=== PATIENT | male | born 1930 | race Caucasian/White ===

== ENCOUNTER 2016-09-24 08:16 | Emergency (ER) | payer MEDICARE, BC ==
[2016-09-24 08:43] VITALS: BP 146/81
--- NOTE | 2016-09-24 09:15 | CR ---
Knee Min 4V Rt HISTORY: pt fell and landed on the rt knee. He has pain whe FINDINGS: No acute fracture or dislocation is identified. Bony architecture is preserved. Right total knee ar throplasty is demonstrated with patellar resurfacing. No loosening other complication can be seen. N o joint effusion is identified. There is atherosclerotic calcification in the distal SFA and poplite al arteries. Soft tissues are unremarkable. IMPRESSION: Right total knee arthroplasty. No complication is identified. No fracture or other acute right abnor mality is identified.
--- NOTE | 2016-09-24 09:34 | EDM.PDOC ---
[id number] Complaint: LEG PAIN Time Seen by Provider: 09/24/16 08:40 Source of Information: Reports: Patient History Limitations: Reports: No Limitations - History of Present Illness INITIAL COMMENTS - FREE TEXT/NARRATIVE: pt fell and landed on his knees. He is now have alot of pain in the rt knee. He is on coumadind and is concerned about the bruising. Onset: Sudden Duration: Hour(s): Location: Reports: Lower Extremity, Right Associated Symptoms: Reports: Other (pt is having significanr rt knee pain. ) Bilateral Leg Pain Score (Numeric/FACES): 10 - Related Data Allergies Allergy/AdvReac Type Severity Reaction Status Date / Time penicillin Allergy Severe Blisters Verified 09/24/16 09:11 Home Meds: Home Meds Glimepiride 4 mg PO DAILY 01/18/15 [History] Hydrochlorothiazide 12.5 mg PO DAILY 01/18/15 [History] Omeprazole 20 mg PO DAILY 01/18/15 [History] Tamsulosin [Flomax] 0.4 mg PO BEDTIME 01/18/15 [History] Clobetasol [Temovate 0.05% Crm] 1 appful TOP BID 01/23/16 [History] Multivitamin with Minerals [Multiple Vitamin] 1 tab PO DAILY 01/23/16 [History] [place]-3 Fatty Acids [Fish Oil] 1 cap PO BID 01/23/16 [History] Warfarin [Coumadin] 4 mg PO DAILY 01/23/16 [History] diphenhydrAMINE HCl [Benadryl] 1 cap PO Q6H PRN 01/23/16 [History] Simvastatin [Zocor] 20 mg PO BEDTIME 01/25/16 [History] metFORMIN [Glucophage] 500 mg PO BIDAC 09/24/16 [History] Past Medical History HEENT History: Reports: Hard of Hearing Cardiovascular History: Reports: Afib, High Cholesterol Genitourinary History: Reports: Chronic Renal Insuffiency Musculoskeletal History: Reports: Fracture Neurological History: Reports: Other (See Below) Other Neuro History: subdural hematoma Other Dermatologic History: bleeding from back of head - Past Surgical History Other Musculoskeletal Surgeries/Procedures:: left hip fracture with surgical repair Social & Family History - Tobacco Use Smoking Status *Q: Never Smoker Second Hand Smoke Exposure: No - Caffeine Use Caffeine Use: Reports: Coffee, Tea - Recreational Drug Use Recreational Drug Use: No Review of Systems - Review of Systems Review Of Systems: See Below Constitutional: Reports: No Symptoms Eyes: Reports: No Symptoms Ears: Reports: No Symptoms Nose: Reports: No Symptoms Mouth/Throat: Reports: No Symptoms Respiratory: Reports: No Symptoms Cardiovascular: Reports: No Symptoms GI/Abdominal: Reports: No Symptoms Musculoskeletal: Reports: Other (pain in the rt knee. ) Skin: Reports: No Symptoms Psychiatric: Reports: No Symptoms Trauma Exam - Physical Exam Exam: See Below Text/Narrative:: Pt arrived with pain in the rt knee. He hit it when he fell 2 days ago and now he is having pain when he walks. Exam Limited By: No Limitations General Appearance: Reports: Alert, Mild Distress Head: Reports: Atraumatic Eyes: Bilateral Eye: EOMI, Normal Inspection, PERRL Ears: Reports: Normal External Exam Nose: Reports: Normal Inspection Extremities: Other ( rt knes is not swollen or bruised. The pain commes mainly when he is walking. ) Neurologic: Reports: Alert, Oriented x 3 Course - Vital Signs Last Recorded V/S: Last Vital Signs Temp 36.5 C 09/24/16 08:39 Pulse 80 09/24/16 08:39 Resp 14 09/24/16 08:39 BP 146/81 H 09/24/16 08:39 Pulse Ox 98 09/24/16 08:39 - Orders/Labs/Meds Labs: Laboratory Tests 09/24/16 Range/Units 09:26 PT 17.2 H (9.5-12.0) sec INR 1.60 H (0.80-1.20) - Re-Assessments/Exams Free Text/Narrative Re-Assessment/Exam: 09/24/16 09:34 Xrays reveal normal components. He has no fractures in the knee area. He does not have hip pain. Because of the fall his INR will be checked. 09/24/16 10:05 pt had a INR done and it was 1.6. Will fax to the coumadin clinic. 09/27/16 21:08 Departure - Departure Time of Disposition: 10:06 Disposition: Home, Self-Care 01 Condition: fair Clinical Impression: Contusion of right knee, Total knee replacement status - Discharge Information Instructions: Contusion, [id number], Total Knee Replacement, [id number] Referrals: Jason Mccartney PA-C [Primary Care Provider] - Forms: ED Department Discharge Care Plan Goals: use a walker at home, cool pack to the knee, tylenol 650 q6h prn for pain. If pt has severe pain may use norco 5/325 1/2 tab q6h prn for pain.
== END 2016-09-24 10:34 | disposition home or self-care (01) ==
LOC: JP.ED 08:16
DX: S80.01XA Contusion of right knee, initial encounter (principal); I48.91 Unspecified atrial fibrillation; E78.00 Pure hypercholesterolemia, unspecified; N18.9 Chronic kidney disease, unspecified; Z88.0 Allergy status to penicillin; Z79.01 Long term (current) use of anticoagulants; Z79.84 Long term (current) use of oral hypoglycemic drugs; Z79.899 Other long term (current) drug therapy; Z96.651 Presence of right artificial knee joint; Z98.890 Other specified postprocedural states; W19.XXXA Unspecified fall, initial encounter
CPT/HCPCS: 36415; 73564-26-RT; 73564-RT; 85610; 99283; 99284

== ENCOUNTER 2016-11-29 03:50 | Inpatient (IN) | payer MEDICARE, BC ==
[2016-11-29] MEDS ORDERED: Acetaminophen/HYDROcodone 325-5 MG Tab PO ONE (04:51)
--- NOTE | 2016-11-29 06:44 | EDM.PDOC ---
ED HPI GENERAL MEDICAL PROBLEM - General Chief Complaint: Back Pain or Injury Stated Complaint: [facility] Time Seen by Provider: 11/29/16 04:34 Source of Information: Reports: Patient History Limitations: Reports: Other (mild confusion) - History of Present Illness INITIAL COMMENTS - FREE TEXT/NARRATIVE: History of present illness: [86-year-old male presented by ambulance complaining of low back pain. He had an appointment today with Dr. Mixon but early this morning he had to get up to urinate and was not able to get out of his bed because of his back pain. He recalls being in the clinic 2 days ago and having some x-rays but he did not recall what was x-rayed and seem to have some difficulty knowing why he was there. We were able to access the clinic side and noted that he had thoracic and lumbar films taken at that visit and those films demonstrated an L5 compression fracture.] Review of systems: As per history of present illness and below otherwise all systems reviewed and negative. Past medical history: As per history of present illness and as reviewed below otherwise noncontributory. Surgical history: As per history of present illness and as reviewed below otherwise noncontributory. Social history: No reported history of drug or alcohol abuse. Family history: As per history of present illness and as reviewed below otherwise noncontributory. Physical exam: Gen.: HEENT: Atraumatic, normocephalic, Lungs: Few crackles in the bases. Otherwise clear Heart: Irregular rate and rhythm. I suspect these in A. fib and that's why he's on warfarin. Abdomen: Obese ,Soft, nondistended, nontender. Negative for masses or hepatosplenomegaly. Negative for costovertebral tenderness. Pelvis: Stable nontender. Genitourinary: Deferred. Rectal: Deferred. Back: On palpation of his lower back he does have tenderness at the location of the L5 compression fracture that was seen 2 days ago on x-ray. Extremities: Atraumatic, negative for cords or calf pain. Neurovascular unremarkable. Neuro: Awake, alert, oriented but seems to be demonstrating some memory difficulties with respect to his visit 2 days ago. The nurses is also noted some subtle difficulties with his memory.. Cranial nerves II through XII unremarkable. Cerebellum unremarkable. Motor and sensory unremarkable throughout. Exam nonfocal. Diagnostics: [CBC complete medical PANEL UA and INR were obtained of interest is his INR which is 1.0 suggesting he's not been taking his warfarin.] Therapeutics: [] Impression: [L5 compression fracture] Plan: [Given that he lives alone and is incapacitated by this pain we have elected to admit him to the hospital for observation. Dr. Dc is coming in to see him.] Definitive disposition and diagnosis as appropriate pending reevaluation and review of above. Back Pain Score (Numeric/FACES): 8 - Related Data Allergies Allergy/AdvReac Type Severity Reaction Status Date / Time penicillin Allergy Severe Blisters Verified 11/29/16 04:18 Home Meds: Home Meds Glimepiride 4 mg PO DAILY 01/18/15 [History] Hydrochlorothiazide 12.5 mg PO DAILY 01/18/15 [History] Omeprazole 20 mg PO DAILY 01/18/15 [History] Tamsulosin [Flomax] 0.4 mg PO BEDTIME 01/18/15 [History] Clobetasol [Temovate 0.05% Crm] 1 appful TOP BID 01/23/16 [History] Multivitamin with Minerals [Multiple Vitamin] 1 tab PO DAILY 01/23/16 [History] [place]-3 Fatty Acids [Fish Oil] 1 cap PO BID 01/23/16 [History] diphenhydrAMINE HCl [Benadryl] 1 cap PO Q6H PRN 01/23/16 [History] Simvastatin [Zocor] 20 mg PO BEDTIME 01/25/16 [History] metFORMIN [Glucophage] 500 mg PO TID 09/24/16 [History] Hydrocodone/Acetaminophen [Hydrocodon-Acetaminophen 5-325] 1 each PO ASDIRECTED PRN 11/29/16 [History] Polyethylene Glycol 3350 [Miralax] 17 g PO DAILY 11/29/16 [History] Warfarin [Coumadin] 1.5 tab PO ASDIRECTED 11/29/16 [History] Warfarin [Coumadin] 6 mg PO ASDIRECTED 11/29/16 [History] Past Medical History HEENT History: Reports: Cataract, Hard of Hearing, Impaired Vision Cardiovascular History: Reports: Afib, High Cholesterol, Hypertension Gastrointestinal History: Reports: GERD Genitourinary History: Reports: Chronic Renal Insuffiency, Urinary Incontinence Musculoskeletal History: Reports: Arthritis, Fracture Neurological History: Reports: Head Trauma Other Neuro History: subdural hematoma Endocrine/Metabolic History: Reports: Diabetes, Type II Hematologic History: Reports: Anticoagulation Therapy Dermatologic History: Reports: Psoriasis Other Dermatologic History: bleeding from back of head - Past Surgical History HEENT Surgical History: Reports: Cataract Surgery, Tonsillectomy GI Surgical History: Reports: Colonoscopy Musculoskeletal Surgical History: Reports: Hip Replacement, Knee Replacement Other Musculoskeletal Surgeries/Procedures:: left hip fracture with surgical repair Social & Family History - Tobacco Use Smoking Status *Q: Never Smoker Second Hand Smoke Exposure: No - Caffeine Use Caffeine Use: Reports: Coffee - Recreational Drug Use Recreational Drug Use: No ED ROS GENERAL - Review of Systems Review Of Systems: ROS reveals no pertinent complaints other than HPI. ED EXAM,LOWER BACK PAIN/INJURY - Physical Exam Exam: See Below Course - Vital Signs Last Recorded V/S: Last Vital Signs Temp 37.1 C 11/29/16 04:03 Pulse 66 11/29/16 06:21 Resp 16 11/29/16 06:21 BP 170/99 H 11/29/16 06:21 Pulse Ox 96 11/29/16 06:21 - Orders/Labs/Meds Labs: Laboratory Tests 11/29/16 11/29/16 11/29/16 Range/Units 04:51 04:51 04:52 WBC 8.9 (4.5-11.0) K/uL RBC 4.52 (4.30-5.90) M/uL Hgb 12.1 (12.0-15.0) g/dL Hct 38.2 L (40.0-54.0) % MCV 85 (80-98) fL MCH 27 (27-31) pg MCHC 32 (32-36) % Plt Count 195 (150-400) K/uL Neut % (Auto) 77 H (36-66) % Lymph % (Auto) 12 L (24-44) % [place] % (Auto) 9 H (2-6) % Eos % (Auto) 2 (2-4) % Baso % (Auto) 0 (0-1) % PT 10.7 (9.5-12.0) sec INR 1.00 (0.80-1.20) Sodium 135 L (140-148) mmol/L Potassium 3.5 L (3.6-5.2) mmol/L Chloride 101 (100-108) mmol/L Carbon Dioxide 26 (21-32) mmol/L Anion Gap 11.5 (5.0-14.0) mmol/L BUN 16 (7-18) mg/dL Creatinine 1.1 (0.8-1.3) mg/dL Est Cr Clr Drug Dosing 55.01 mL/min Estimated GFR (MDRD) > 60 (>60) Glucose 168 H (74-106) mg/dL Calcium 8.7 (8.5-10.1) mg/dL Total Bilirubin 0.9 (0.2-1.0) mg/dL AST 11 L (15-37) U/L ALT 12 (12-78) U/L Alkaline Phosphatase 77 (46-116) U/L Total Protein 7.5 (6.4-8.2) g/dL Albumin 3.0 L (3.4-5.0) g/dL Globulin 4.5 H (2.3-3.5) g/dL Albumin/Globulin Ratio 0.7 L (1.2-2.2) Urine Color Urine Appearance Urine pH (4.5-8.0) Ur Specific [place] (1.008-1.030) Urine Protein (NEGATIVE) mg/dL Urine Glucose (UA) (NEGATIVE) mg/dL Urine Ketones (NEGATIVE) mg/dL Urine Occult Blood (NEGATIVE) Urine Nitrite (NEGAITVE) Urine Bilirubin (NEGATIVE) Urine Urobilinogen (NORMAL) mg/dL Ur Leukocyte Esterase (NEGATIVE) Urine RBC (0-5) Urine WBC (0-5) Ur Epithelial Cells Amorphous Sediment Urine Bacteria Urine Mucus 11/29/16 Range/Units 04:53 WBC (4.5-11.0) K/uL RBC (4.30-5.90) M/uL Hgb (12.0-15.0) g/dL Hct (40.0-54.0) % MCV (80-98) fL MCH (27-31) pg MCHC (32-36) % Plt Count (150-400) K/uL Neut % (Auto) (36-66) % Lymph % (Auto) (24-44) % [place] % (Auto) (2-6) % Eos % (Auto) (2-4) % Baso % (Auto) (0-1) % PT (9.5-12.0) sec INR (0.80-1.20) Sodium (140-148) mmol/L Potassium (3.6-5.2) mmol/L Chloride (100-108) mmol/L Carbon Dioxide (21-32) mmol/L Anion Gap (5.0-14.0) mmol/L BUN (7-18) mg/dL Creatinine (0.8-1.3) mg/dL Est Cr Clr Drug Dosing mL/min Estimated GFR (MDRD) (>60) Glucose (74-106) mg/dL Calcium (8.5-10.1) mg/dL Total Bilirubin (0.2-1.0) mg/dL AST (15-37) U/L ALT (12-78) U/L Alkaline Phosphatase (46-116) U/L Total Protein (6.4-8.2) g/dL Albumin (3.4-5.0) g/dL Globulin (2.3-3.5) g/dL Albumin/Globulin Ratio (1.2-2.2) Urine Color Yellow Urine Appearance Clear Urine pH 7.0 (4.5-8.0) Ur Specific [place] 1.010 (1.008-1.030) Urine Protein Negative (NEGATIVE) mg/dL Urine Glucose (UA) 50 H (NEGATIVE) mg/dL Urine Ketones Negative (NEGATIVE) mg/dL Urine Occult Blood Negative (NEGATIVE) Urine Nitrite Negative (NEGAITVE) Urine Bilirubin Negative (NEGATIVE) Urine Urobilinogen Normal (NORMAL) mg/dL Ur Leukocyte Esterase Negative (NEGATIVE) Urine RBC 0-5 (0-5) Urine WBC 0-5 (0-5) Ur Epithelial Cells Rare Amorphous Sediment Few Urine Bacteria Not seen Urine Mucus Few Meds: Medications Discontinued Medications Generic Name Dose Route Start Last Admin Trade Name Freq PRN Reason Stop Dose Admin Hydrocodone Bitart/Acetaminophen 1 tab 11/29/16 04:51 11/29/16 04:57 [place] 325-5 Mg PO 11/29/16 04:52 1 tab ONETIME ONE Administration Departure - Departure Time of Disposition: 06:44 Disposition: Refer to Observation Condition: Fair Clinical Impression: Compression fracture of L5 lumbar vertebra Qualifiers: Encounter type: initial encounter Fracture type: closed Qualified Code(s): S32.050A - Wedge compression fracture of fifth lumbar vertebra, initial encounter for closed fracture - Discharge Information Forms: ED Department Discharge
[2016-11-29] MEDS ORDERED: Acetaminophen 325 MG Tab PO PRN (08:06)
[2016-11-29] MEDS: Polyethylene Glycol 3350 Powder 17 GM Packet PO SCH (11:26)
[2016-11-29] MEDS: OMEPRAZOLE 20 MG PO SCH (11:27)
[2016-11-29] MEDS: Glimepiride 2 MG Tab PO SCH (11:27)
[2016-11-29] MEDS: Hydrochlorothiazide 12.5 MG Cap PO SCH (11:28)
[2016-11-29] MEDS: Acetaminophen/HYDROcodone 325-5 MG Tab PO PRN ×2 (13:45→21:51)
[2016-11-29] MEDS: Warfarin 5 MG Tab PO SCH (13:46)
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
[2016-11-29] MEDS: Tamsulosin 0.4 MG Cap.ER*POM PO SCH (21:49)
[2016-11-29] MEDS: SIMVASTATIN 40 MG PO SCH (21:49)
[2016-11-30] MEDS: Acetaminophen/HYDROcodone 325-5 MG Tab PO PRN ×3 (03:59→23:40)
[2016-11-30] MEDS: OMEPRAZOLE 20 MG PO SCH (08:08)
[2016-11-30] MEDS: Glimepiride 2 MG Tab PO SCH (08:15)
[2016-11-30] MEDS: Hydrochlorothiazide 12.5 MG Cap PO SCH (08:15)
[2016-11-30] MEDS: Polyethylene Glycol 3350 Powder 17 GM Packet PO SCH (09:28)
--- NOTE | 2016-11-30 09:49 | PCM.PN ---
- General Info Date of Service: 11/30/16 Functional Status: Reports: Pain Controlled, Tolerating Diet, Ambulating - Review of Systems General: Reports: Weakness Musculoskeletal: Reports: Back Pain Systems Review Comment:: No acute events overnight. Back pain is improved compared to yesterday. He is able to get out of bed on his own and ambulate short distances with a walker. No significant pain while sitting still or standing up but some pain going from lying to sitting and sitting to standing. Physical therapy thinks that he's had his recent baseline. Vital signs have been stable. - Patient Data Vitals - most recent: Last Vital Signs Temp 37.1 C 11/30/16 08:00 Pulse 87 11/30/16 08:00 Resp 18 11/30/16 08:00 BP 164/81 H 11/30/16 00:00 Pulse Ox 97 11/30/16 00:00 Weight - most recent: 99.3 kg I&O - last 24 hours: Intake & Output 11/29/16 11/30/16 11/30/16 22:59 06:59 14:59 Intake Total 800 120 Output Total 650 Balance 800 -530 Lab Results last 24 hrs: Laboratory Results - last 24 hr 11/30/16 Range/Units 07:50 PT 11.0 (9.5-12.0) sec INR 1.03 (0.80-1.20) Med Orders - Current: Current Medications Acetaminophen (Tylenol) 650 mg PO Q4H PRN PRN Reason: Pain (Mild 1-3)/fever Hydrocodone Bitart/Acetaminophen ([place] 325-5 Mg) 1 tab PO Q6H PRN PRN Reason: Pain Last Admin: 11/30/16 03:59 Dose: 1 tab Glimepiride (Amaryl) 4 mg PO DAILY@0800 [facility] Last Admin: 11/30/16 08:15 Dose: 4 mg Hydrochlorothiazide (Hydrochlorothiazide) 12.5 mg PO DAILY [facility] Last Admin: 11/30/16 08:15 Dose: 12.5 mg Omeprazole [ Omeprazole] 20 Mg)* Pom* 20 mg PO DAILY@0730 [facility] Last Admin: 11/30/16 08:08 Dose: 20 mg Metformin 1000mg * (Pom*) 0.5 each PO TIDMEALS [facility] Last Admin: 11/30/16 08:08 Dose: 0.5 each Simvastatin 40mg*Pom (*) 20 mg PO BEDTIME [facility] Last Admin: 11/29/16 21:49 Dose: 20 mg Polyethylene Glycol (Miralax) 17 gm PO DAILY [facility] Last Admin: 11/30/16 09:28 Dose: 17 gm Tamsulosin HCl (Flomax) 0.4 mg PO BEDTIME [facility] Last Admin: 11/29/16 21:49 Dose: 0.4 mg Warfarin Sodium (Coumadin) 5 mg PO DAILY@1300 [facility] Last Admin: 11/29/16 13:46 Dose: 5 mg Discontinued Medications Hydrocodone Bitart/Acetaminophen ([place] 325-5 Mg) 1 tab PO ONETIME ONE Stop: 11/29/16 04:52 Last Admin: 11/29/16 04:57 Dose: 1 tab - Exam Quality Assessment: No: supplemental oxygen General: alert, oriented, cooperative, no acute distress Neck: supple Lungs: Normal Respiratory Effort Cardiovascular: Regular Rate, Regular Rhythm GI/Abdominal Exam: Soft, No Distention Extremities: No Pedal Edema. No: Increased Warmth Skin: warm, dry Psy/Mental Status: alert, normal affect - Problem List Review Problem List Initiated/Reviewed/Updated: Yes - My Orders Last 24 Hours: My Active Orders 12/01/16 05:00 INR,PT,PROTHROMBIN TIME [COAG] Timed POTASSIUM,K [CHEM] Timed - Plan Plan:: Assessment and plan - Acute lower back pain with generalized weakness - known compression fracture at L5. Clinically doing better today and able to get into and out of bed on his own. He has been working with physical therapy and may be at his baseline at this time. -Continue pain control -Physical therapy -Consider discharge home versus [facility] depending on progress in 24 hours Type 2 diabetes mellitus - on oral medications only. Sugars have been acceptably controlled. Essential hypertension - blood pressure control acceptable. Constipation - no bowel movement in a couple of days and is feeling uncomfortable. -Bowel stimulation Maintenance issues - - DVT prophylaxis - ROLAND stockings - GI prophylaxis - PPI - Nutrition - diabetic diet Disposition - anticipate discharge to home with home health care versus may be [facility] discharge in the next 1-2 days Jama Peoples M.D.
[2016-11-30] MEDS: Warfarin 5 MG Tab PO SCH (12:10)
[2016-11-30] MEDS: Tamsulosin 0.4 MG Cap.ER*POM PO SCH (20:44)
[2016-11-30] MEDS: SIMVASTATIN 40 MG PO SCH (20:45)
[2016-12-01] MEDS: Acetaminophen/HYDROcodone 325-5 MG Tab PO PRN ×4 (05:36→22:10)
[2016-12-01] MEDS: OMEPRAZOLE 20 MG PO SCH (08:01)
[2016-12-01] MEDS: Hydrochlorothiazide 12.5 MG Cap PO SCH (08:02)
[2016-12-01] MEDS: Polyethylene Glycol 3350 Powder 17 GM Packet PO SCH (08:03)
[2016-12-01] MEDS: Glimepiride 2 MG Tab PO SCH (08:03)
--- NOTE | 2016-12-01 12:16 | PCM.PN ---
- General Info Date of Service: 12/01/16 Functional Status: Reports: Tolerating Diet, Ambulating. Denies: Pain Controlled - Review of Systems Musculoskeletal: Reports: Back Pain Systems Review Comment:: No acute events overnight but this morning he reports moderately severe lower back pain. It is the same location where it has been in the midline of the lower back. Pain is more severe with any sort of movement though he is fairly comfortable when he is sitting completely still. Pain pills to help with his discomfort for a while. Has not had any fevers. No complaints of shortness of breath or abdominal pain. He did have a bowel movement yesterday. - Patient Data Vitals - most recent: Last Vital Signs Temp 37.2 C 12/01/16 10:57 Pulse 74 12/01/16 10:56 Resp 20 12/01/16 10:56 BP 170/93 H 12/01/16 10:56 Pulse Ox 94 L 12/01/16 10:56 Weight - most recent: 99.3 kg I&O - last 24 hours: Intake & Output 11/30/16 12/01/16 12/01/16 22:59 06:59 14:59 Intake Total 350 360 240 Output Total 625 1450 200 Balance -275 -1090 40 Lab Results last 24 hrs: Laboratory Results - last 24 hr 12/01/16 12/01/16 Range/Units 05:15 05:15 PT 12.2 H (9.5-12.0) sec INR 1.13 (0.80-1.20) Potassium 3.7 (3.6-5.2) mmol/L Med Orders - Current: Current Medications Acetaminophen (Tylenol) 650 mg PO Q4H PRN PRN Reason: Pain (Mild 1-3)/fever Last Admin: 11/30/16 20:48 Dose: 650 mg Hydrocodone Bitart/Acetaminophen ([place] 325-5 Mg) 1 - 2 tab PO Q4H PRN PRN Reason: Pain Last Admin: 12/01/16 10:58 Dose: 1 tab Glimepiride (Amaryl) 4 mg PO DAILY@0800 [facility] Last Admin: 12/01/16 08:03 Dose: 4 mg Hydrochlorothiazide (Hydrochlorothiazide) 12.5 mg PO DAILY [facility] Last Admin: 12/01/16 08:02 Dose: 12.5 mg Omeprazole [ Omeprazole] 20 Mg)* Pom* 20 mg PO DAILY@0730 [facility] Last Admin: 12/01/16 08:01 Dose: 20 mg Metformin 1000mg * (Pom*) 0.5 each PO TIDMEALS [facility] Last Admin: 12/01/16 08:02 Dose: 0.5 each Simvastatin 40mg*Pom (*) 20 mg PO BEDTIME [facility] Last Admin: 11/30/16 20:45 Dose: 20 mg Polyethylene Glycol (Miralax) 17 gm PO DAILY [facility] Last Admin: 12/01/16 08:03 Dose: 17 gm Tamsulosin HCl (Flomax) 0.4 mg PO BEDTIME [facility] Last Admin: 11/30/16 20:44 Dose: 0.4 mg Warfarin Sodium (Coumadin) 5 mg PO DAILY@1300 [facility] Last Admin: 11/30/16 12:10 Dose: 5 mg Discontinued Medications Hydrocodone Bitart/Acetaminophen ([place] 325-5 Mg) 1 tab PO ONETIME ONE Stop: 11/29/16 04:52 Last Admin: 11/29/16 04:57 Dose: 1 tab Hydrocodone Bitart/Acetaminophen ([place] 325-5 Mg) 1 tab PO Q6H PRN PRN Reason: Pain Last Admin: 12/01/16 05:36 Dose: 1 tab - Exam Quality Assessment: No: supplemental oxygen General: alert, oriented, cooperative, mild distress Neck: supple Lungs: Normal Respiratory Effort GI/Abdominal Exam: Soft, No Distention Back Exam: No: Full Range of Motion Extremities: No Pedal Edema Skin: warm, dry Psy/Mental Status: alert, normal affect - Problem List Review Problem List Initiated/Reviewed/Updated: Yes - My Orders Last 24 Hours: My Active Orders 12/01/16 10:55 Acetaminophen/HYDROcodone [[place] 325-5 MG] 1 - 2 tab PO Q4H PRN 12/01/16 12:13 Patient Status [ADT] Routine 12/01/16 12:15 Lidocaine 5% [Lidoderm 5%] 700 mg TOP Q24H 12/01/16 16:30 GLUCOSE POC LAB TO COLLECT [POC] QIDACANDBED 12/01/16 21:00 GLUCOSE POC LAB TO COLLECT [POC] QIDACANDBED Gabapentin [Neurontin] 300 mg PO BEDTIME 12/02/16 05:00 INR,PT,PROTHROMBIN TIME [COAG] Timed 12/02/16 07:30 GLUCOSE POC LAB TO COLLECT [POC] QIDACANDBED 12/02/16 11:30 GLUCOSE POC LAB TO COLLECT [POC] QIDACANDBED 12/02/16 16:30 GLUCOSE POC LAB TO COLLECT [POC] QIDACANDBED 12/02/16 21:00 GLUCOSE POC LAB TO COLLECT [POC] QIDACANDBED 12/03/16 07:30 GLUCOSE POC LAB TO COLLECT [POC] QIDACANDBED 12/03/16 11:30 GLUCOSE POC LAB TO COLLECT [POC] QIDACANDBED 12/03/16 16:30 GLUCOSE POC LAB TO COLLECT [POC] QIDACANDBED 12/03/16 21:00 GLUCOSE POC LAB TO COLLECT [POC] QIDACANDBED 12/04/16 07:30 GLUCOSE POC LAB TO COLLECT [POC] QIDACANDBED 12/04/16 11:30 GLUCOSE POC LAB TO COLLECT [POC] QIDACANDBED 12/04/16 16:30 GLUCOSE POC LAB TO COLLECT [POC] QIDACANDBED 12/04/16 21:00 GLUCOSE POC LAB TO COLLECT [POC] QIDACANDBED - Plan Plan:: Assessment and plan - Acute lower back pain with generalized weakness - known compression fracture at L5. Pain significantly worse today compared to yesterday. More significant impairment in mobility today. -Hydrocodone -Lidocaine patch -Calcitonin -Physical therapy -Consider discharge to [facility] for rehabilitation Type 2 diabetes mellitus - on oral medications only. Sugars have been acceptably controlled. Essential hypertension - blood pressure control acceptable. Constipation - no bowel movement in a couple of days and is feeling uncomfortable. -Bowel stimulation Maintenance issues - - DVT prophylaxis - ROLAND stockings - GI prophylaxis - PPI - Nutrition - diabetic diet Disposition - anticipate discharge to home with home health care if he makes dramatic improvements versus more likely a retirement stay. Jama Peoples M.D.
[2016-12-01] MEDS: Warfarin 5 MG Tab PO SCH (12:46)
[2016-12-01] MEDS ORDERED: Lidocaine 5% 700 MG Patch TOP SCH (13:00)
[2016-12-01] MEDS: Calcitonin (Salmon) Nasal Spray 3.7 ML Bottle NAS SCH (16:24)
[2016-12-01] MEDS: Magnesium Hydroxide 400 MG/5 ML Susp 30 ML Cup PO PRN (16:26)
[2016-12-01] MEDS: metFORMIN 500 MG Tab PO SCH (17:15)
[2016-12-01] MEDS: Tamsulosin 0.4 MG Cap.ER PO SCH (20:16)
[2016-12-01] MEDS: Gabapentin 300 MG Cap PO SCH (20:16)
[2016-12-01] MEDS: Simvastatin 20 MG Tab PO SCH (20:17)
[2016-12-02] MEDS: Acetaminophen/HYDROcodone 325-5 MG Tab PO PRN ×4 (02:30→20:04)
[2016-12-02] MEDS: OMEPRAZOLE 20 MG PO SCH (07:39)
[2016-12-02] MEDS: metFORMIN 500 MG Tab PO SCH ×3 (07:40→17:13)
[2016-12-02] MEDS: Glimepiride 2 MG Tab PO SCH (07:40)
[2016-12-02] MEDS: Hydrochlorothiazide 12.5 MG Cap PO SCH (10:20)
[2016-12-02] MEDS: Lidocaine 5% 700 MG Patch TOP SCH (10:20)
[2016-12-02] MEDS: Calcitonin (Salmon) Nasal Spray 3.7 ML Bottle NAS SCH (10:21)
[2016-12-02] MEDS: Polyethylene Glycol 3350 Powder 17 GM Packet PO SCH (10:22)
[2016-12-02] MEDS: Warfarin 5 MG Tab PO SCH (12:24)
--- NOTE | 2016-12-02 13:38 | PCM.PN ---
- General Info Date of Service: 12/02/16 Functional Status: Reports: Pain Controlled, Tolerating Diet, Urinating - Review of Systems General: Reports: Weakness. Denies: Fever, Chills Pulmonary: Reports: No Symptoms Cardiovascular: Reports: No Symptoms Gastrointestinal: Reports: No Symptoms Musculoskeletal: Reports: Back Pain Systems Review Comment:: Mr. Ventura has been stable over the past 24 hours, he did have a large bowel movement early this morning. Continues to experience significant back pain in his mobility is severely limited. Vital signs have been good and he has remained afebrile. - Patient Data Vitals - most recent: Last Vital Signs Temp 97.8 F 12/02/16 11:51 Pulse 63 12/02/16 11:51 Resp 17 12/02/16 11:51 BP 130/81 12/02/16 11:51 Pulse Ox 96 12/02/16 11:51 Weight - most recent: 218 lb 14.704 oz I&O - last 24 hours: Intake & Output 12/01/16 12/02/16 12/02/16 22:59 06:59 14:59 Intake Total 240 800 Output Total 275 175 350 Balance -35 -175 450 Lab Results last 24 hrs: Laboratory Results - last 24 hr 12/02/16 Range/Units 05:54 PT 14.6 H (9.5-12.0) sec INR 1.35 H (0.80-1.20) Med Orders - Current: Current Medications Acetaminophen (Tylenol) 650 mg PO Q4H PRN PRN Reason: Pain (Mild 1-3)/fever Last Admin: 11/30/16 20:48 Dose: 650 mg Hydrocodone Bitart/Acetaminophen ([place] 325-5 Mg) 1 - 2 tab PO Q4H PRN PRN Reason: Pain Last Admin: 12/02/16 12:23 Dose: 1 tab Calcitonin [place] (Miacalcin Nasal [place]) 0 ml DELFIN DAILY [facility] Last Admin: 12/02/16 10:21 Dose: 1 spr Gabapentin (Neurontin) 300 mg PO BEDTIME [facility] Last Admin: 12/01/16 20:16 Dose: 300 mg Glimepiride (Amaryl) 4 mg PO DAILY@0800 [facility] Last Admin: 12/02/16 07:40 Dose: 4 mg Hydrochlorothiazide (Hydrochlorothiazide) 12.5 mg PO DAILY [facility] Last Admin: 12/02/16 10:20 Dose: 12.5 mg Lidocaine (Lidoderm 5%) 700 mg TOP DAILY [facility] Last Admin: 12/02/16 10:20 Dose: 700 mg Magnesium Hydroxide (Milk Of Magnesia) 30 ml PO BID PRN PRN Reason: Constipation Last Admin: 12/01/16 16:26 Dose: 30 ml Metformin HCl (Glucophage) 500 mg PO TIDMEALS [facility] Last Admin: 12/02/16 12:23 Dose: 500 mg Miscellaneous Information (Remove Patch) 0 ea TRDERM BEDTIME [facility] Last Admin: 12/02/16 03:25 Dose: Not Given Omeprazole [ Omeprazole] 20 Mg)* Pom* 20 mg PO DAILY@0730 [facility] Last Admin: 12/02/16 07:39 Dose: 20 mg Polyethylene Glycol (Miralax) 17 gm PO DAILY [facility] Last Admin: 12/02/16 10:22 Dose: 17 gm Simvastatin (Zocor) 20 mg PO BEDTIME [facility] Last Admin: 12/01/16 20:17 Dose: 20 mg Tamsulosin HCl (Flomax) 0.4 mg PO BEDTIME [facility] Last Admin: 12/01/16 20:16 Dose: 0.4 mg Warfarin Sodium (Coumadin) 5 mg PO DAILY@1300 [facility] Last Admin: 12/02/16 12:24 Dose: 5 mg Discontinued Medications Hydrocodone Bitart/Acetaminophen ([place] 325-5 Mg) 1 tab PO ONETIME ONE Stop: 11/29/16 04:52 Last Admin: 11/29/16 04:57 Dose: 1 tab Hydrocodone Bitart/Acetaminophen ([place] 325-5 Mg) 1 tab PO Q6H PRN PRN Reason: Pain Last Admin: 12/01/16 05:36 Dose: 1 tab Lidocaine (Lidoderm 5%) 700 mg TOP Q24H [facility] Stop: 12/01/16 14:00 Last Admin: 12/01/16 12:46 Dose: 700 mg Metformin 1000mg * (Pom*) 0.5 each PO TIDMEALS [facility] Last Admin: 12/01/16 12:57 Dose: 0.5 each Simvastatin 40mg*Pom (*) 20 mg PO BEDTIME [facility] Last Admin: 11/30/16 20:45 Dose: 20 mg Tamsulosin HCl (Flomax) 0.4 mg PO BEDTIME [facility] Last Admin: 11/30/16 20:44 Dose: 0.4 mg - Exam General: alert, oriented, cooperative, mild distress Lungs: Clear to Auscultation, Normal Respiratory Effort Cardiovascular: Regular Rate, Regular Rhythm, No Murmurs GI/Abdominal Exam: Normal Bowel Sounds, Soft, Non-Tender, No Organomegaly, No Distention Extremities: Normal Inspection, Normal Range of Motion, No Pedal Edema Skin: warm, dry, intact - Problem List Review Problem List Initiated/Reviewed/Updated: Yes - My Orders Last 24 Hours: My Active Orders 12/03/16 05:00 INR,PT,PROTHROMBIN TIME [COAG] Timed - Plan Plan:: Assessment and plan - Acute lower back pain with generalized weakness - known compression fracture at L5. - Severe impairment of mobility -Hydrocodone -Lidocaine patch -Calcitonin -Physical therapy -Consider discharge to [facility] for [facility] Type 2 diabetes mellitus - on oral medications only. Sugars have been acceptably controlled. Essential hypertension - blood pressure control acceptable. Constipation - no bowel movement in a couple of days and is feeling uncomfortable. -Bowel stimulation Maintenance issues - - DVT prophylaxis - ROLAND stockings - GI prophylaxis - PPI - Nutrition - diabetic diet Disposition - anticipate discharge to home with home health care if he makes dramatic improvements versus more likely a [facility] stay.
[2016-12-02] MEDS: Gabapentin 300 MG Cap PO SCH (20:05)
[2016-12-02] MEDS: Tamsulosin 0.4 MG Cap.ER PO SCH (20:05)
[2016-12-02] MEDS: Simvastatin 20 MG Tab PO SCH (20:06)
[2016-12-03] MEDS: Acetaminophen/HYDROcodone 325-5 MG Tab PO PRN ×5 (01:43→21:17)
[2016-12-03] MEDS: OMEPRAZOLE 20 MG PO SCH (07:40)
[2016-12-03] MEDS: metFORMIN 500 MG Tab PO SCH ×3 (07:58→17:11)
[2016-12-03] MEDS: Glimepiride 2 MG Tab PO SCH (07:59)
[2016-12-03] MEDS: Magnesium Hydroxide 400 MG/5 ML Susp 30 ML Cup PO PRN (08:01)
[2016-12-03] MEDS: Polyethylene Glycol 3350 Powder 17 GM Packet PO SCH (08:05)
[2016-12-03] MEDS: Lidocaine 5% 700 MG Patch TOP SCH (08:05)
[2016-12-03] MEDS: Hydrochlorothiazide 12.5 MG Cap PO SCH (08:05)
[2016-12-03] MEDS: Calcitonin (Salmon) Nasal Spray 3.7 ML Bottle NAS SCH (10:13)
[2016-12-03] MEDS: Warfarin 5 MG Tab PO SCH (12:40)
--- NOTE | 2016-12-03 14:35 | PCM.PN ---
- General Info Date of Service: 12/03/16 Functional Status: Reports: Tolerating Diet - Review of Systems General: Reports: Weakness. Denies: Fever, Chills Pulmonary: Reports: No Symptoms Cardiovascular: Reports: No Symptoms Gastrointestinal: Reports: No Symptoms Musculoskeletal: Reports: Back Pain Systems Review Comment:: This patient has continued to experience severe back pain related to his compression fracture. Appetite is been fairly good and he did have a small bowel movement earlier today. Vital signs have been stable and he has remained afebrile. He will require [facility] placement and we are currently awaiting disposition. - Patient Data Vitals - Most Recent: Last Vital Signs Temp 98.9 F 12/03/16 11:21 Pulse 64 12/03/16 11:21 Resp 16 12/03/16 11:21 BP 140/83 12/03/16 11:21 Pulse Ox 97 12/03/16 11:21 Weight - Most Recent: 218 lb 14.704 oz I&O - Last 24 Hours: Intake & Output 12/02/16 12/03/16 12/03/16 22:59 06:59 14:59 Intake Total 826 320 7985 Output Total 1125 350 800 Balance -825 -110 220 Lab Results Last 24 Hours: Laboratory Results - last 24 hr 12/03/16 Range/Units 05:15 PT 17.4 H (9.5-12.0) sec INR 1.59 H (0.80-1.20) Med Orders - Current: Current Medications Acetaminophen (Tylenol) 650 mg PO Q4H PRN PRN Reason: Pain (Mild 1-3)/fever Last Admin: 11/30/16 20:48 Dose: 650 mg Hydrocodone Bitart/Acetaminophen ([place] 325-5 Mg) 1 - 2 tab PO Q4H PRN PRN Reason: Pain Last Admin: 12/03/16 12:40 Dose: 2 tab Calcitonin [place] (Miacalcin Nasal [place]) 0 ml DELFIN DAILY [facility] Last Admin: 12/03/16 10:13 Dose: 1 spr Clobetasol Propionate (Clobetasol 0.05%) 1 gm TOP BID [facility] Gabapentin (Neurontin) 300 mg PO BEDTIME [facility] Last Admin: 12/02/16 20:05 Dose: 300 mg Glimepiride (Amaryl) 4 mg PO DAILY@0800 [facility] Last Admin: 12/03/16 07:59 Dose: 4 mg Hydrochlorothiazide (Hydrochlorothiazide) 12.5 mg PO DAILY [facility] Last Admin: 12/03/16 08:05 Dose: 12.5 mg Lidocaine (Lidoderm 5%) 700 mg TOP DAILY [facility] Last Admin: 12/03/16 08:05 Dose: 700 mg Magnesium Hydroxide (Milk Of Magnesia) 30 ml PO BID PRN PRN Reason: Constipation Last Admin: 12/03/16 08:01 Dose: 30 ml Magnesium Hydroxide (Milk Of Magnesia) 30 ml PO ONETIME ONE Stop: 12/03/16 14:33 Metformin HCl (Glucophage) 500 mg PO TIDMEALS [facility] Last Admin: 12/03/16 12:40 Dose: 500 mg Miscellaneous Information (Remove Patch) 0 ea TRDERM BEDTIME [facility] Last Admin: 12/02/16 20:06 Dose: Not Given Omeprazole [ Omeprazole] 20 Mg)* Pom* 20 mg PO DAILY@0730 [facility] Last Admin: 12/03/16 07:40 Dose: 20 mg Polyethylene Glycol (Miralax) 17 gm PO DAILY [facility] Last Admin: 12/03/16 08:05 Dose: 17 gm Simvastatin (Zocor) 20 mg PO BEDTIME [facility] Last Admin: 12/02/16 20:06 Dose: 20 mg Tamsulosin HCl (Flomax) 0.4 mg PO BEDTIME [facility] Last Admin: 12/02/16 20:05 Dose: 0.4 mg Warfarin Sodium (Coumadin) 5 mg PO DAILY@1300 [facility] Last Admin: 12/03/16 12:40 Dose: 5 mg Discontinued Medications Hydrocodone Bitart/Acetaminophen ([place] 325-5 Mg) 1 tab PO ONETIME ONE Stop: 11/29/16 04:52 Last Admin: 11/29/16 04:57 Dose: 1 tab Hydrocodone Bitart/Acetaminophen ([place] 325-5 Mg) 1 tab PO Q6H PRN PRN Reason: Pain Last Admin: 12/01/16 05:36 Dose: 1 tab Lidocaine (Lidoderm 5%) 700 mg TOP Q24H [facility] Stop: 12/01/16 14:00 Last Admin: 12/01/16 12:46 Dose: 700 mg Metformin 1000mg * (Pom*) 0.5 each PO TIDMEALS [facility] Last Admin: 12/01/16 12:57 Dose: 0.5 each Simvastatin 40mg*Pom (*) 20 mg PO BEDTIME [facility] Last Admin: 11/30/16 20:45 Dose: 20 mg Tamsulosin HCl (Flomax) 0.4 mg PO BEDTIME [facility] Last Admin: 11/30/16 20:44 Dose: 0.4 mg - Exam Quality Assessment: DVT Prophylaxis General: Alert, Cooperative, Moderate Distress Lungs: Clear to Auscultation, Normal Respiratory Effort Cardiovascular: Regular Rate, Regular Rhythm, No Murmurs GI/Abdominal Exam: Normal Bowel Sounds, Soft, Non-Tender, No Distention Extremities: Normal Inspection, No Pedal Edema - Problem List Review Problem List Initiated/Reviewed/Updated: Yes - My Orders Last 24 Hours: My Active Orders 12/03/16 14:32 Magnesium Hydroxide [Milk of Magnesia] 30 ml PO ONETIME ONE 12/03/16 21:00 Clobetasol [Clobetasol 0.05%] 1 gm TOP BID 12/04/16 05:00 INR,PT,PROTHROMBIN TIME [COAG] Timed - Plan Plan:: Assessment and plan - Acute lower back pain with generalized weakness - known compression fracture at L5. - Severe impairment of mobility -Hydrocodone -Lidocaine patch -Calcitonin -Physical therapy -Consider discharge to [facility] for rehabilitation Type 2 diabetes mellitus - on oral medications only. Sugars have been acceptably controlled. Essential hypertension - blood pressure control acceptable. Constipation - small bowel movement earlier today -Bowel stimulation Maintenance issues - - DVT prophylaxis - ROLAND stockings - GI prophylaxis - PPI - Nutrition - diabetic diet Disposition - anticipate discharge to [facility] in one to 2 days.
[2016-12-03] MEDS ORDERED: Magnesium Hydroxide 400 MG/5 ML Susp 30 ML Cup PO ONE (15:00)
[2016-12-03] MEDS: CLOBETASOL 0.05% TOP SCH (21:17)
[2016-12-03] MEDS: Gabapentin 300 MG Cap PO SCH (21:18)
[2016-12-03] MEDS: Tamsulosin 0.4 MG Cap.ER PO SCH (21:18)
[2016-12-03] MEDS: Simvastatin 20 MG Tab PO SCH (21:19)
[2016-12-04] MEDS: Acetaminophen/HYDROcodone 325-5 MG Tab PO PRN ×2 (02:53→09:00)
[2016-12-04] MEDS: OMEPRAZOLE 20 MG PO SCH (07:24)
[2016-12-04] MEDS: Glimepiride 2 MG Tab PO SCH (07:25)
[2016-12-04] MEDS: metFORMIN 500 MG Tab PO SCH (07:25)
[2016-12-04 07:42] VITALS: BP 155/77
[2016-12-04] MEDS: Polyethylene Glycol 3350 Powder 17 GM Packet PO SCH (08:49)
[2016-12-04] MEDS: Lidocaine 5% 700 MG Patch TOP SCH (08:49)
[2016-12-04] MEDS: Hydrochlorothiazide 12.5 MG Cap PO SCH (08:49)
[2016-12-04] MEDS: Calcitonin (Salmon) Nasal Spray 3.7 ML Bottle NAS SCH (08:50)
[2016-12-04] MEDS: CLOBETASOL 0.05% TOP SCH (08:51)
--- NOTE | 2016-12-04 10:57 | PCM.DCSUM1 ---
Discharge Summary - Hospital Course Brief History: Mr. Ventura is an 86-year-old gentleman who is admitted through the emergency department because of progressive weakness related to back pain. - Discharge Data Discharge Date: 12/04/16 Discharge Disposition: DC/Tfer to SNF 03 Condition: Fair - Discharge Diagnosis/Problem(s) (1) Compression fracture of L5 lumbar vertebra SNOMED Code(s): 395678681 ICD Code: S32.050A - WEDGE COMPRESSION FRACTURE OF FIFTH LUMBAR VERTEBRA, INIT Status: Acute Current Visit: Yes Qualifiers: Encounter type: initial encounter Fracture type: closed Qualified Code(s) : S32.050A - Wedge compression fracture of fifth lumbar vertebra, initial encounter for closed fracture - Patient Summary/Data Hospital Course: Mr. Pinedo is an 86-year-old gentleman who experienced abrupt onset of lower back pain at home, he denies any precipitating injury. Because of the back pain he was unable to transfer ambulate and became progressively more weak. On evaluation in the emergency department was found to have an L5 spinal compression fracture which was felt to be the source of his acute pain. Initially admitted to observation status and then transferred to inpatient status because of persistent ongoing pain and inability to transfer as well as ambulate. He was given pain medication as needed. Physical therapy and occupational therapy were consult at but spite interventions he was unable to move adequately to be able to be discharged home. For this reason he will be discharged to longterm for further restorative physical therapy as well as occupational therapy. Activity will be as tolerated and he will resume his usual diet. - Patient Instructions Diet: Diabetic Diet Activity: As Tolerated Other/Special Instructions: Daily physical therapy and occupational therapy while at the longterm. Lab in 2 days on December 06. - Discharge Plan Prescriptions/Med Rec: Acetaminophen/HYDROcodone [[place] 325-5 MG] 2 tab PO Q4H PRN #40 tablet PRN Reason: Pain Calcitonin ([place]) [Miacalcin Nasal [place]] 1 spray DELFIN DAILY #1 bottle Gabapentin [Neurontin] 300 mg PO BID #60 cap Lidocaine 5% [Lidoderm 5%] 700 mg TOP DAILY #30 patch Home Medications: Home Meds Glimepiride 4 mg PO DAILY 01/18/15 [History] Hydrochlorothiazide 12.5 mg PO DAILY 01/18/15 [History] Omeprazole 20 mg PO DAILY 01/18/15 [History] Tamsulosin [Flomax] 0.4 mg PO BEDTIME 01/18/15 [History] Clobetasol [Temovate 0.05% Crm] 1 appful TOP BID 01/23/16 [History] Multivitamin with Minerals [Multiple Vitamin] 1 tab PO DAILY 01/23/16 [History] Raymond-3 Fatty Acids [Fish Oil] 1 cap PO BID 01/23/16 [History] diphenhydrAMINE HCl [Benadryl] 1 cap PO Q6H PRN 01/23/16 [History] Simvastatin [Zocor] 20 mg PO BEDTIME 01/25/16 [History] metFORMIN [Glucophage] 500 mg PO TID 09/24/16 [History] Hydrocodone/Acetaminophen [Hydrocodon-Acetaminophen 5-325] 1 each PO ASDIRECTED PRN 11/29/16 [History] Polyethylene Glycol 3350 [Miralax] 17 g PO DAILY 11/29/16 [History] Warfarin [Coumadin] 4 mg PO ASDIRECTED 11/29/16 [History] Warfarin [Coumadin] 6 mg PO ASDIRECTED 11/29/16 [History] Acetaminophen/HYDROcodone [[place] 325-5 MG] 2 tab PO Q4H PRN #40 tablet 12/04/16 [Rx] Calcitonin ([place]) [Miacalcin Nasal [place]] 1 spray DELFIN DAILY #1 bottle [Rx] Gabapentin [Neurontin] 300 mg PO BID #60 cap 12/04/16 [Rx] Lidocaine 5% [Lidoderm 5%] 700 mg TOP DAILY #30 patch 12/04/16 [Rx] Referrals: PCP,None [Primary Care Provider] - - Patient Data Vitals - Most Recent: Last Vital Signs Temp 98.5 F 12/04/16 07:37 Pulse 72 12/04/16 07:37 Resp 20 12/04/16 07:37 BP 155/77 H 12/04/16 07:37 Pulse Ox 97 12/04/16 07:37 Weight - Most Recent: 218 lb 14.704 oz I&O - Last 24 hours: Intake & Output 12/03/16 12/04/16 12/04/16 22:59 06:59 14:59 Intake Total 240 1200 Output Total 650 1150 Balance -410 -1150 1200 Lab Results - Last 24 hrs: Laboratory Results - last 24 hr 12/04/16 Range/Units 06:02 PT 20.1 H (9.5-12.0) sec INR 1.83 H (0.80-1.20) Med Orders - Current: Current Medications Acetaminophen (Tylenol) 650 mg PO Q4H PRN PRN Reason: Pain (Mild 1-3)/fever Last Admin: 11/30/16 20:48 Dose: 650 mg Hydrocodone Bitart/Acetaminophen ([place] 325-5 Mg) 1 - 2 tab PO Q4H PRN PRN Reason: Pain Last Admin: 12/04/16 09:00 Dose: 2 tab Calcitonin [place] (Miacalcin Nasal [place]) 0 ml DELFIN DAILY [facility] Last Admin: 12/04/16 08:50 Dose: 1 spr Gabapentin (Neurontin) 300 mg PO BEDTIME [facility] Last Admin: 12/03/16 21:18 Dose: 300 mg Glimepiride (Amaryl) 4 mg PO DAILY@0800 [facility] Last Admin: 12/04/16 07:25 Dose: 4 mg Hydrochlorothiazide (Hydrochlorothiazide) 12.5 mg PO DAILY [facility] Last Admin: 12/04/16 08:49 Dose: 12.5 mg Lidocaine (Lidoderm 5%) 700 mg TOP DAILY [facility] Last Admin: 12/04/16 08:49 Dose: 700 mg Magnesium Hydroxide (Milk Of Magnesia) 30 ml PO BID PRN PRN Reason: Constipation Last Admin: 12/03/16 08:01 Dose: 30 ml Metformin HCl (Glucophage) 500 mg PO TIDMEALS [facility] Last Admin: 12/04/16 07:25 Dose: 500 mg Miscellaneous Information (Remove Patch) 0 ea TRDERM BEDTIME [facility] Last Admin: 12/03/16 21:18 Dose: 1 ea Omeprazole [ Omeprazole] 20 Mg)* Pom* 20 mg PO DAILY@0730 [facility] Last Admin: 12/04/16 07:24 Dose: 20 mg Clobetasol 0.05% (Ointment (Ptom)) 0 each TOP BID [facility] Last Admin: 12/04/16 08:51 Dose: 1 each Polyethylene Glycol (Miralax) 17 gm PO DAILY [facility] Last Admin: 12/04/16 08:49 Dose: 17 gm Simvastatin (Zocor) 20 mg PO BEDTIME [facility] Last Admin: 12/03/16 21:19 Dose: 20 mg Tamsulosin HCl (Flomax) 0.4 mg PO BEDTIME [facility] Last Admin: 12/03/16 21:18 Dose: 0.4 mg Warfarin Sodium (Coumadin) 5 mg PO DAILY@1300 [facility] Last Admin: 12/03/16 12:40 Dose: 5 mg Discontinued Medications Hydrocodone Bitart/Acetaminophen ([place] 325-5 Mg) 1 tab PO ONETIME ONE Stop: 11/29/16 04:52 Last Admin: 11/29/16 04:57 Dose: 1 tab Hydrocodone Bitart/Acetaminophen ([place] 325-5 Mg) 1 tab PO Q6H PRN PRN Reason: Pain Last Admin: 12/01/16 05:36 Dose: 1 tab Lidocaine (Lidoderm 5%) 700 mg TOP Q24H [facility] Stop: 12/01/16 14:00 Last Admin: 12/01/16 12:46 Dose: 700 mg Magnesium Hydroxide (Milk Of Magnesia) 30 ml PO ONETIME ONE Stop: 12/03/16 15:01 Last Admin: 12/03/16 17:10 Dose: Not Given Metformin 1000mg * (Pom*) 0.5 each PO TIDMEALS [facility] Last Admin: 12/01/16 12:57 Dose: 0.5 each Simvastatin 40mg*Pom (*) 20 mg PO BEDTIME [facility] Last Admin: 11/30/16 20:45 Dose: 20 mg Tamsulosin HCl (Flomax) 0.4 mg PO BEDTIME [facility] Last Admin: 11/30/16 20:44 Dose: 0.4 mg *Q Meaningful Use (DIS) - VTE *Q VTE Criteria *Q: - Stroke *Q Stroke Criteria *Q: - AMI *Q AMI Criteria *Q:
== END 2016-12-04 12:45 | DRG 544 ==
LOC: JP.ED 03:50 → JP.ICU 06:40 → JP.MS 11-30 14:35 → OBSVTOIN 12-01 12:13
PROVIDERS: ADMIT Family Medicine; ATTEND Hospitalist
DX: M48.56XA Collapsed vertebra, not elsewhere classified, lumbar region, initial encounter for fracture (principal); I12.9 Hypertensive chronic kidney disease with stage 1 through stage 4 chronic kidney disease, or unspecified chronic kidney disease; I48.2 Chronic atrial fibrillation; Z79.01 Long term (current) use of anticoagulants; E11.22 Type 2 diabetes mellitus with diabetic chronic kidney disease; Z79.84 Long term (current) use of oral hypoglycemic drugs; N18.9 Chronic kidney disease, unspecified; R53.1 Weakness; Z87.891 Personal history of nicotine dependence; Z66 Do not resuscitate; K59.00 Constipation, unspecified; N40.1 Benign prostatic hyperplasia with lower urinary tract symptoms; R33.8 Other retention of urine; E78.5 Hyperlipidemia, unspecified; M19.90 Unspecified osteoarthritis, unspecified site; K21.9 Gastro-esophageal reflux disease without esophagitis; H54.7 Unspecified visual loss; H91.90 Unspecified hearing loss, unspecified ear; Z88.0 Allergy status to penicillin; Z96.653 Presence of artificial knee joint, bilateral; Z96.642 Presence of left artificial hip joint
CPT/HCPCS: 36415 ×3; 80053; 81001; 82607; 82746; 82962 ×5; 84132; 84443; 85025; 85610 ×3; 97110; 97162; 99285; A9270 ×33; 97530-GP; 99225; G0378